=== PATIENT | male | born 1965 | race Caucasian/White ===

== ENCOUNTER → 2022-02-15 | Outpatient (CLI) | payer BC ==
[~2022-02-15] MED LIST: IBUPROFEN800 MG PO; LIPITOR40 MG PO; MOBIC15 MG PO; PERCOCET 7.5-31 EACH PO; XIGDUO XR 10 M1 EACH PO
== END ==
LOC: HEART CORB 12:39
DX: R07.2 Precordial pain (principal); R94.31 Abnormal electrocardiogram [ECG] [EKG]; Z86.79 Personal history of other diseases of the circulatory system
CPT/HCPCS: 93306